=== PATIENT | female | born 1935 | race Caucasian/White ===

== ENCOUNTER 2019-03-17 09:28 | Observation (INO) ==
[2019-03-17] MEDS ORDERED: ONDANSETRON 4 MG/2 ML VIAL ONE (09:59)
[2019-03-17] MEDS ORDERED: ONDANSETRON 4 MG/2 ML VIAL IV STA ×2 (10:03→10:10)
[2019-03-17] MEDS ORDERED: SODIUM CHLORIDE 0.9% 500 ML IV STA (10:09)
[2019-03-17] MEDS ORDERED: METOPROLOL TARTRATE 5 MG/5 ML VIAL IV STA (10:09)
[2019-03-17 10:18] LABS: Basophils # 0.1 10*3/uL (0.0-0.2); Basophils % 0.9 % (0.0-0.8); Eosinophils # 0.3 10*3/uL (0.0-0.87); Eosinophils % 4.2 % (0.00-10.9); Hematocrit 33.1 VOL% (35.7-47.0); Hemoglobin 11.5 GM/DL (12.0-16.0); Immature Granulocytes % 0.3 %; Immature Granulocytes Absolute 0.02 #; Lymphocytes # 2.2 10*3/uL (1.4-4.0); Lymphocytes % 31.5 % (21.3-54.2); Mean Corpuscular HGB Conc 34.7 GM/DL (32-36); Mean Corpuscular Volume 90.9 FL (87-102); Mean Platelet Volume 9.8 FL (9.6-12.0); Monocytes % 13.2 % (1.7-12.7); Neutrophils % 49.9 % (38.7-73.9); Platelet Count 240 T/CUMM (130-400); Red Blood Count 3.64 MC/CUMM (3.8-5.5); Red Cell Distribution Width 13.8 % (9.3-17.3); White Blood Count 6.8 T/CUMM (4-12)
[2019-03-17 10:27] LABS: PT Patient Result 10.7 SECS (9.6-12.2); Partial Thromboplastin Time 26.6 SECS (20.8-36.0)
[2019-03-17 10:40] LABS: Apearance,Urine CLEAR (Clear); Bacteria,Urine Occasional /HPF (Few); Bilirubin,Urine Negative (Negative); Blood, Urine Negative (Negative); Glucose,Urine (UA) Negative (Negative); Ketones,Urine Negative (Negative); Mucus,Urine Occasional /LPF (Occasional); Nitrite,Urine Negative (Negative); Protein,Urine Negative; RBC,Urine 1 /HPF (0-4); Urine Color Straw (Yellow); Urine Specific Gravity 1.006 (1.001-1.035); Urine Urobilinogen < 2.0 EU/DL (0.2-1.0); WBC,Urine 2 /HPF (0-6)
[2019-03-17 10:46] LABS: Albumin 3.8 G/DL (3.4-5.0); Bilirubin,Total 0.7 MG/DL (0.2-1.0); Calcium 9.5 MG/DL (8.5-10.1); Osmolality,Calculated 258.5 MOS/KG (273-304); Total Protein 7.6 G/DL (6.4-8.3)
[2019-03-17] MEDS ORDERED: DOCUSATE SODIUM 100 MG CAPSULE PO PRN (10:59)
[2019-03-17] MEDS ORDERED: ACETAMINOPHEN 325 MG TABLET PO PRN (10:59)
[2019-03-17] MEDS ORDERED: ZALEPLON 5 MG CAPSULE PO PRN (10:59)
[2019-03-17] MEDS ORDERED: ACETAMINOPHEN 500 MG TABLET PO PRN (11:02)
[2019-03-17] MEDS ORDERED: FLUTICASONE 50 MCG NASAL SPRAY 16 GM BOTTLE BOTH NARES PRN (11:02)
[2019-03-17] MEDS ORDERED: MECLIZINE 25 MG TABLET PO PRN (11:13)
[2019-03-17] MEDS ORDERED: hydrALAZINE 20 MG/1 ML VIAL IV PRN (11:13)
[2019-03-17] MEDS ORDERED: METOPROLOL SUCCINATE XL 100 MG TABLET PO SCH (11:30)
[2019-03-17] MEDS ORDERED: LEVOTHYROXINE 25 MCG TABLET PO SCH (11:30)
[2019-03-17] MEDS ORDERED: DILTIAZEM CD 240 MG CAPSULE PO SCH (11:30)
[2019-03-17 11:31] LABS: Calcium 9.4 MG/DL (8.5-10.1); Osmolality,Calculated 258.5 MOS/KG (273-304)
[2019-03-17 11:35] LABS: Albumin 3.8 G/DL (3.4-5.0); Bilirubin,Direct 0.16 MG/DL (0.0-0.20); Bilirubin,Indirect 0.4 MG/DL (0.0-1.0); Bilirubin,Total 0.6 MG/DL (0.2-1.0); Total Protein 7.6 G/DL (6.4-8.3)
[2019-03-17] MEDS: SODIUM CHLORIDE 0.9% 1,000 ML IV SCH (11:53)
[2019-03-17 19:16] LABS: Calcium 8.8 MG/DL (8.5-10.1); Osmolality,Calculated 262.9 MOS/KG (273-304)
[2019-03-17] MEDS ORDERED: POTASSIUM CHLORIDE 20 MEQ TABLET PO ONE (20:59)
[2019-03-17] MEDS ORDERED: ASCORBIC ACID 500 MG TABLET PO SCH (21:00)
[2019-03-17] MEDS ORDERED: VITAMIN E 400 UNIT CAPSULE PO SCH (21:00)
[2019-03-17] MEDS ORDERED: APIXABAN 2.5 MG TABLET PO SCH (21:00)
[2019-03-17] MEDS ORDERED: MAGNESIUM OXIDE 400 MG TABLET PO SCH (21:00)
[2019-03-18] MEDS: SODIUM CHLORIDE 0.9% 1,000 ML IV SCH (02:23)
[2019-03-18 03:52] LABS: Basophils % 0.5 % (0.0-0.8); Eosinophils # 0.2 10*3/uL (0.0-0.87); Eosinophils % 3.7 % (0.00-10.9); Hematocrit 30.8 VOL% (35.7-47.0); Hemoglobin 10.4 GM/DL (12.0-16.0); Immature Granulocytes % 0.4 %; Immature Granulocytes Absolute 0.02 #; Lymphocytes # 1.8 10*3/uL (1.4-4.0); Lymphocytes % 32.1 % (21.3-54.2); Mean Corpuscular HGB Conc 33.8 GM/DL (32-36); Mean Corpuscular Volume 92.2 FL (87-102); Monocytes % 12.5 % (1.7-12.7); Neutrophils % 50.8 % (38.7-73.9); Platelet Count 221 T/CUMM (130-400); Red Blood Count 3.34 MC/CUMM (3.8-5.5); White Blood Count 5.5 T/CUMM (4-12)
[2019-03-18 04:39] LABS: Calcium 8.5 MG/DL (8.5-10.1); Osmolality,Calculated 263.8 MOS/KG (273-304)
[2019-03-18] MEDS ORDERED: POTASSIUM CHLORIDE 20 MEQ TABLET PO ONE (06:26)
[2019-03-18 08:27] VITALS: BP 128/61
[2019-03-18] MEDS ORDERED: POTASSIUM CHLORIDE 20 MEQ TABLET PO SCH (09:00)
[2019-03-18] MEDS ORDERED: POLYETHYLENE GLYCOL POWDER 17 GM PACK PO SCH (09:00)
[2019-03-18] MEDS ORDERED: CHOLECALCIFEROL 1,000 UNIT TABLET PO SCH (09:00)
[2019-03-18] MEDS ORDERED: FOLIC ACID 1 MG TABLET PO SCH (09:00)
== END 2019-03-18 09:58 | disposition home or self-care (01) ==
LOC: N.ED 09:28 → N.EDINP 09:28 → N.2W 12:21
PROVIDERS: ADMIT Internal Medicine Cardiovascular Disease; ATTEND Internal Medicine Cardiovascular Disease

== ENCOUNTER 2021-10-29 11:29 | Inpatient (IN) ==
[2021-10-29 11:56] LABS: Basophils # 0.1 10*3/uL (0.0-0.2); Eosinophils # 0.2 10*3/uL (0.0-0.87); Eosinophils % 4.7 % (0.00-10.9); Hematocrit 34.1 VOL% (35.7-47.0); Hemoglobin 11.5 GM/DL (12.0-16.0); Immature Granulocytes % 0.2 %; Immature Granulocytes Absolute 0.01 #; Lymphocytes # 1.3 10*3/uL (1.4-4.0); Lymphocytes % 25.5 % (21.3-54.2); Mean Corpuscular HGB Conc 33.7 GM/DL (32-36); Mean Corpuscular Volume 92.9 FL (87-102); Mean Platelet Volume 8.7 FL (9.6-12.0); Monocytes # 0.8 10*3/uL (0.11-0.8); Monocytes % 15.6 % (1.7-12.7); Platelet Count 251 T/CUMM (130-400); Red Blood Count 3.67 MC/CUMM (3.8-5.5); Red Cell Distribution Width 15.3 % (9.3-17.3); White Blood Count 4.9 T/CUMM (4-12)
[2021-10-29 12:07] LABS: PT Patient Result 11.3 SECS (10.1-12.1); Partial Thromboplastin Time 26.8 SECS (23.7-32.9)
[2021-10-29 12:21] LABS: Albumin 3.4 G/DL (3.4-5.0); Bilirubin,Total 0.5 MG/DL (0.20-1.00); Calcium 9.9 MG/DL (8.5-10.1); Osmolality,Calculated 282.3 MOS/KG (273-304); Potassium 3.7 MMOL/L (3.5-5.1); Total Protein 6.7 G/DL (6.4-8.2)
[2021-10-29 12:38] LABS: Eosinophils 7 % (0-10); Lymphocytes 32 % (20-55); Total Cells Counted 100
[2021-10-29 12:39] LABS: Platelet Estimate Adequate; Reactive Lymphocytes Few
[2021-10-29 13:04] LABS: Mucus,Urine Occasional /LPF (Occasional); Protein,Urine Negative (Negative); Squamous Epithelial Cell,Urine Occasional /HPF (0-10); Urine Appearance Slightly Hazy (Clear); Urine Color Yellow (Yellow); Urine Specific Gravity 1.015 (1.001-1.035); Urine pH 6.5 (4.5-8.0)
[2021-10-29 13:05] LABS: Bilirubin,Urine Negative (Negative); Blood, Urine Trace mg/dL (Negative); Glucose,Urine (UA) Negative (Negative); Ketones,Urine Negative (Negative); Nitrite,Urine Positive (Negative); Urine Urobilinogen 0.2 eU/dL (<2.0)
[2021-10-29] MEDS ORDERED: cefTRIAXone 1,000 MG in SODIUM CHLORIDE 0.9% 100 ML IV STA (13:23)
[2021-10-29] MEDS ORDERED: LABETALOL 20 MG/4 ML SYRINGE IV PRN (13:50)
[2021-10-29] MEDS ORDERED: DEXTROSE 10% 250 ML BAG IV PRN (13:50)
[2021-10-29] MEDS ORDERED: GLUCAGON 1 MG VIAL IM PRN (13:50)
[2021-10-29] MEDS ORDERED: ONDANSETRON 4 MG/2 ML VIAL IV PRN (13:51)
[2021-10-29] MEDS ORDERED: ACETAMINOPHEN 325 MG TABLET PO PRN (13:51)
[2021-10-29] MEDS ORDERED: ASPIRIN 300 MG SUPP RECTAL STA (13:54)
[2021-10-29] MEDS ORDERED: FLUTICASONE 50 MCG NASAL SPRAY 16 GM BOTTLE BOTH NARES PRN (13:58)
[2021-10-29] MEDS ORDERED: LORATADINE 10 MG TABLET PO PRN (13:58)
[2021-10-29] MEDS ORDERED: DENOSUMAB 60 MG/ML SYRINGE SUBCUT SCH (14:00)
[2021-10-29] MEDS: LACTATED RINGERS 1,000 ML IV SCH (16:57)
[2021-10-29] MEDS ORDERED: ATORVASTATIN 40 MG TABLET PO SCH (21:00)
[2021-10-29] MEDS: CALCIUM (CARBONATE) 500 MG TABLET PO SCH (21:38)
[2021-10-29] MEDS: METHENAMINE HIPPURATE 1 GM TABLET PO SCH (21:38)
[2021-10-29] MEDS: APIXABAN 5 MG TABLET PO SCH (21:38)
[2021-10-30 04:34] LABS: Basophils # 0.1 10*3/uL (0.0-0.2); Basophils % 0.9 % (0.0-0.8); Eosinophils # 0.3 10*3/uL (0.0-0.87); Eosinophils % 4.4 % (0.00-10.9); Hematocrit 39.2 VOL% (35.7-47.0); Hemoglobin 13.4 GM/DL (12.0-16.0); Immature Granulocytes % 0.1 %; Immature Granulocytes Absolute 0.01 #; Lymphocytes # 1.8 10*3/uL (1.4-4.0); Lymphocytes % 26.8 % (21.3-54.2); Mean Corpuscular HGB Conc 34.2 GM/DL (32-36); Mean Corpuscular Volume 93.8 FL (87-102); Mean Platelet Volume 9.5 FL (9.6-12.0); Monocytes # 1.1 10*3/uL (0.11-0.8); Monocytes % 16.7 % (1.7-12.7); Neutrophils % 51.1 % (38.7-73.9); Platelet Count 271 T/CUMM (130-400); Red Blood Count 4.18 MC/CUMM (3.8-5.5); Red Cell Distribution Width 15.3 % (9.3-17.3); White Blood Count 6.8 T/CUMM (4-12)
[2021-10-30 04:54] LABS: Calcium 10.4 MG/DL (8.5-10.1); Potassium 3.3 MMOL/L (3.5-5.1); Risk Ratio 3.44; VLDL Cholesterol 25.2 MG/DL
[2021-10-30 05:00] LABS: Free T4 (Free Thyroxine) 1.18 NG/DL (0.76-1.46); Thyroid Stimulating Hormone 2.25 uIU/ml (0.358-3.74)
[2021-10-30 05:19] LABS: Band Neutrophils 1 % (0-10); Eosinophils 3 % (0-10); Lymphocytes 36 % (20-55); Myelocytes 1 %; Total Cells Counted 100
[2021-10-30 05:20] LABS: Platelet Estimate Normal
[2021-10-30] MEDS: LACTATED RINGERS 1,000 ML IV SCH ×3 (06:38→23:32)
[2021-10-30] MEDS: LEVOTHYROXINE 25 MCG TABLET PO SCH (06:38)
[2021-10-30] MEDS ORDERED: POTASSIUM CHLORIDE 20 MEQ TABLET PO ONE (07:44)
[2021-10-30] MEDS ORDERED: ASPIRIN 325 MG TABLET PO SCH (09:00)
[2021-10-30] MEDS: VITAMIN E 400 UNIT CAPSULE PO SCH (09:02)
[2021-10-30] MEDS: ASPIRIN EC 81 MG TABLET PO SCH (09:03)
[2021-10-30] MEDS: FOLIC ACID 1 MG TABLET PO SCH (09:03)
[2021-10-30] MEDS: ASCORBIC ACID 500 MG TABLET PO SCH (09:03)
[2021-10-30] MEDS: cefTRIAXone 1,000 MG in SODIUM CHLORIDE 0.9% 100 ML IV SCH (09:03)
[2021-10-30] MEDS: APIXABAN 5 MG TABLET PO SCH ×2 (09:03→23:31)
[2021-10-30] MEDS: CHOLECALCIFEROL 1,000 UNIT TABLET PO SCH (09:03)
[2021-10-30] MEDS: METOPROLOL SUCCINATE XL 100 MG TABLET PO SCH (09:03)
[2021-10-30] MEDS: DILTIAZEM CD 240 MG CAPSULE PO SCH (09:23)
[2021-10-30] MEDS: METHENAMINE HIPPURATE 1 GM TABLET PO SCH ×2 (12:16→23:31)
[2021-10-30] MEDS: CALCIUM (CARBONATE) 500 MG TABLET PO SCH (23:31)
[2021-10-30] MEDS: ATORVASTATIN 80 MG TABLET PO SCH (23:31)
[2021-10-31 05:08] LABS: Basophils # 0.1 10*3/uL (0.0-0.2); Basophils % 0.7 % (0.0-0.8); Eosinophils # 0.3 10*3/uL (0.0-0.87); Eosinophils % 3.5 % (0.00-10.9); Hematocrit 38.5 VOL% (35.7-47.0); Hemoglobin 13.1 GM/DL (12.0-16.0); Immature Granulocytes % 0.3 %; Immature Granulocytes Absolute 0.02 #; Lymphocytes # 1.9 10*3/uL (1.4-4.0); Mean Corpuscular Volume 92.5 FL (87-102); Mean Platelet Volume 9.8 FL (9.6-12.0); Monocytes # 1.2 10*3/uL (0.11-0.8); Monocytes % 15.6 % (1.7-12.7); Neutrophils % 53.9 % (38.7-73.9); Platelet Count 239 T/CUMM (130-400); Red Blood Count 4.16 MC/CUMM (3.8-5.5); Red Cell Distribution Width 15.1 % (9.3-17.3); White Blood Count 7.4 T/CUMM (4-12)
[2021-10-31 05:27] LABS: Calcium 9.8 MG/DL (8.5-10.1); Osmolality,Calculated 268.2 MOS/KG (273-304); Potassium 2.9 MMOL/L (3.5-5.1)
[2021-10-31 05:33] LABS: Anisocytosis 1+; Band Neutrophils 1 % (0-10); Eosinophils 3 % (0-10); Lymphocytes 26 % (20-55); Macrocytosis Slight; Ovalocytes Few; Platelet Estimate Normal; Total Cells Counted 100
[2021-10-31] MEDS: LEVOTHYROXINE 25 MCG TABLET PO SCH (06:27)
[2021-10-31] MEDS ORDERED: POTASSIUM CHLORIDE 20 MEQ TABLET PO ONE ×2 (07:33→12:00)
[2021-10-31] MEDS ORDERED: MAGNESIUM SULF RIDER 4 GM/100 ML PREMIX IV ONE (08:21)
[2021-10-31] MEDS: cefTRIAXone 1,000 MG in SODIUM CHLORIDE 0.9% 100 ML IV SCH (08:36)
[2021-10-31] MEDS: FOLIC ACID 1 MG TABLET PO SCH (08:37)
[2021-10-31] MEDS: METOPROLOL SUCCINATE XL 100 MG TABLET PO SCH (08:37)
[2021-10-31] MEDS: VITAMIN E 400 UNIT CAPSULE PO SCH (08:37)
[2021-10-31] MEDS: METHENAMINE HIPPURATE 1 GM TABLET PO SCH ×2 (08:37→22:51)
[2021-10-31] MEDS: ASCORBIC ACID 500 MG TABLET PO SCH (08:37)
[2021-10-31] MEDS: CHOLECALCIFEROL 1,000 UNIT TABLET PO SCH (08:37)
[2021-10-31] MEDS: ASPIRIN EC 81 MG TABLET PO SCH (08:37)
[2021-10-31] MEDS: APIXABAN 5 MG TABLET PO SCH ×2 (08:37→22:50)
[2021-10-31] MEDS: DILTIAZEM CD 240 MG CAPSULE PO SCH (08:37)
[2021-10-31] MEDS: LACTATED RINGERS 1,000 ML IV SCH ×3 (10:27→16:31)
[2021-10-31] MEDS ORDERED: diphenhydrAMINE CAP 50 MG CAPSULE PO PRN (20:13)
[2021-10-31] MEDS: MAGNESIUM OXIDE 400 MG TABLET PO SCH (22:50)
[2021-10-31] MEDS: CALCIUM (CARBONATE) 500 MG TABLET PO SCH (22:50)
[2021-10-31] MEDS: ATORVASTATIN 80 MG TABLET PO SCH (22:51)
[2021-11-01 04:52] LABS: Basophils # 0.1 10*3/uL (0.0-0.2); Basophils % 0.6 % (0.0-0.8); Eosinophils # 0.3 10*3/uL (0.0-0.87); Eosinophils % 2.8 % (0.00-10.9); Hematocrit 39.4 VOL% (35.7-47.0); Hemoglobin 13.5 GM/DL (12.0-16.0); Immature Granulocytes % 0.3 %; Immature Granulocytes Absolute 0.03 #; Lymphocytes # 1.7 10*3/uL (1.4-4.0); Lymphocytes % 16.9 % (21.3-54.2); Mean Corpuscular HGB Conc 34.3 GM/DL (32-36); Mean Corpuscular Volume 91.6 FL (87-102); Mean Platelet Volume 9.9 FL (9.6-12.0); Monocytes # 1.5 10*3/uL (0.11-0.8); Monocytes % 14.3 % (1.7-12.7); Neutrophils % 65.1 % (38.7-73.9); Platelet Count 224 T/CUMM (130-400); Red Cell Distribution Width 14.5 % (9.3-17.3); White Blood Count 10.2 T/CUMM (4-12)
[2021-11-01 05:08] LABS: Calcium 9.4 MG/DL (8.5-10.1); Osmolality,Calculated 256.1 MOS/KG (273-304); Potassium 3.2 MMOL/L (3.5-5.1)
[2021-11-01] MEDS: LEVOTHYROXINE 25 MCG TABLET PO SCH (06:54)
[2021-11-01] MEDS ORDERED: POTASSIUM CHLORIDE 20 MEQ TABLET PO ONE (07:46)
[2021-11-01] MEDS: MAGNESIUM OXIDE 400 MG TABLET PO SCH ×2 (09:25→22:21)
[2021-11-01] MEDS: APIXABAN 5 MG TABLET PO SCH ×2 (09:25→22:21)
[2021-11-01] MEDS: VITAMIN E 400 UNIT CAPSULE PO SCH (09:25)
[2021-11-01] MEDS: VALSARTAN 80 MG TABLET PO SCH (09:25)
[2021-11-01] MEDS: FOLIC ACID 1 MG TABLET PO SCH (09:26)
[2021-11-01] MEDS: cefTRIAXone 1,000 MG in SODIUM CHLORIDE 0.9% 100 ML IV SCH (09:26)
[2021-11-01] MEDS: METOPROLOL SUCCINATE XL 100 MG TABLET PO SCH (09:26)
[2021-11-01] MEDS: CHOLECALCIFEROL 1,000 UNIT TABLET PO SCH (09:26)
[2021-11-01] MEDS: ASCORBIC ACID 500 MG TABLET PO SCH (09:26)
[2021-11-01] MEDS: DILTIAZEM CD 240 MG CAPSULE PO SCH (09:26)
[2021-11-01] MEDS: ASPIRIN EC 81 MG TABLET PO SCH (09:26)
[2021-11-01] MEDS: METHENAMINE HIPPURATE 1 GM TABLET PO SCH ×2 (09:26→22:21)
[2021-11-01] MEDS: SODIUM CHLORIDE 0.9% 1,000 ML IV SCH (09:27)
[2021-11-01] MEDS ORDERED: MELATONIN 3 MG TABLET PO PRN (11:21)
[2021-11-01] MEDS ORDERED: ZALEPLON 5 MG CAPSULE PO PRN (12:43)
[2021-11-01] MEDS: CALCIUM (CARBONATE) 500 MG TABLET PO SCH (22:21)
[2021-11-01] MEDS: ATORVASTATIN 80 MG TABLET PO SCH (22:21)
[2021-11-01] MEDS: MELATONIN 3 MG TABLET PO SCH (22:21)
[2021-11-02] MEDS: SODIUM CHLORIDE 0.9% 1,000 ML IV SCH (04:10)
[2021-11-02 04:45] LABS: Basophils # 0.1 10*3/uL (0.0-0.2); Basophils % 0.7 % (0.0-0.8); Eosinophils # 0.3 10*3/uL (0.0-0.87); Eosinophils % 4.4 % (0.00-10.9); Hematocrit 35.8 VOL% (35.7-47.0); Hemoglobin 12.4 GM/DL (12.0-16.0); Immature Granulocytes % 0.3 %; Immature Granulocytes Absolute 0.02 #; Lymphocytes # 1.8 10*3/uL (1.4-4.0); Lymphocytes % 25.1 % (21.3-54.2); Mean Corpuscular HGB Conc 34.6 GM/DL (32-36); Mean Corpuscular Volume 91.6 FL (87-102); Mean Platelet Volume 9.7 FL (9.6-12.0); Monocytes # 1.2 10*3/uL (0.11-0.8); Monocytes % 16.9 % (1.7-12.7); Neutrophils % 52.6 % (38.7-73.9); Platelet Count 218 T/CUMM (130-400); Red Blood Count 3.91 MC/CUMM (3.8-5.5); Red Cell Distribution Width 14.6 % (9.3-17.3); White Blood Count 7.3 T/CUMM (4-12)
[2021-11-02 05:08] LABS: Eosinophils 3 % (0-10); Lymphocytes 23 % (20-55); Microcytosis Slight; Total Cells Counted 100
[2021-11-02 05:09] LABS: Ovalocytes Slight; Platelet Estimate Normal
[2021-11-02 05:20] LABS: Calcium 9.7 MG/DL (8.5-10.1); Osmolality,Calculated 264.7 MOS/KG (273-304); Potassium 3.6 MMOL/L (3.5-5.1)
[2021-11-02] MEDS: LEVOTHYROXINE 25 MCG TABLET PO SCH (06:23)
[2021-11-02] MEDS ORDERED: FUROSEMIDE 20 MG/2 ML VIAL IV ONE (10:30)
[2021-11-02] MEDS: METHENAMINE HIPPURATE 1 GM TABLET PO SCH ×2 (10:39→20:52)
[2021-11-02] MEDS: DILTIAZEM CD 240 MG CAPSULE PO SCH (10:39)
[2021-11-02] MEDS: APIXABAN 5 MG TABLET PO SCH ×2 (10:40→20:51)
[2021-11-02] MEDS: MAGNESIUM OXIDE 400 MG TABLET PO SCH ×2 (10:40→20:52)
[2021-11-02] MEDS: ASCORBIC ACID 500 MG TABLET PO SCH (10:40)
[2021-11-02] MEDS: CHOLECALCIFEROL 1,000 UNIT TABLET PO SCH (10:40)
[2021-11-02] MEDS: ASPIRIN EC 81 MG TABLET PO SCH (10:41)
[2021-11-02] MEDS: VITAMIN E 400 UNIT CAPSULE PO SCH (10:41)
[2021-11-02] MEDS: FOLIC ACID 1 MG TABLET PO SCH (10:41)
[2021-11-02] MEDS: VALSARTAN 80 MG TABLET PO SCH (10:41)
[2021-11-02] MEDS: METOPROLOL SUCCINATE XL 100 MG TABLET PO SCH (10:41)
[2021-11-02] MEDS: cefTRIAXone 1,000 MG in SODIUM CHLORIDE 0.9% 100 ML IV SCH (10:42)
[2021-11-02] MEDS: ATORVASTATIN 80 MG TABLET PO SCH (20:52)
[2021-11-02] MEDS: MELATONIN 3 MG TABLET PO SCH (20:52)
[2021-11-02] MEDS: CALCIUM (CARBONATE) 500 MG TABLET PO SCH (20:52)
[2021-11-03] MEDS: LEVOTHYROXINE 25 MCG TABLET PO SCH (05:53)
[2021-11-03 06:00] LABS: Basophils # 0.1 10*3/uL (0.0-0.2); Basophils % 0.7 % (0.0-0.8); Eosinophils # 0.4 10*3/uL (0.0-0.87); Eosinophils % 4.8 % (0.00-10.9); Hematocrit 33.5 VOL% (35.7-47.0); Hemoglobin 11.8 GM/DL (12.0-16.0); Immature Granulocytes % 0.4 %; Immature Granulocytes Absolute 0.03 #; Lymphocytes # 1.9 10*3/uL (1.4-4.0); Lymphocytes % 25.3 % (21.3-54.2); Mean Corpuscular HGB Conc 35.2 GM/DL (32-36); Mean Corpuscular Volume 90.3 FL (87-102); Mean Platelet Volume 9.6 FL (9.6-12.0); Monocytes # 1.4 10*3/uL (0.11-0.8); Monocytes % 19.2 % (1.7-12.7); Neutrophils % 49.6 % (38.7-73.9); Platelet Count 209 T/CUMM (130-400); Red Blood Count 3.71 MC/CUMM (3.8-5.5); Red Cell Distribution Width 14.6 % (9.3-17.3); White Blood Count 7.3 T/CUMM (4-12)
[2021-11-03 06:14] LABS: Calcium 8.7 MG/DL (8.5-10.1); Osmolality,Calculated 256.2 MOS/KG (273-304); Potassium 3.3 MMOL/L (3.5-5.1)
[2021-11-03 06:20] LABS: Eosinophils 6 % (0-10); Lymphocytes 21 % (20-55); Platelet Estimate Adequate; Total Cells Counted 100
[2021-11-03] MEDS ORDERED: POLYETHYLENE GLYCOL POWDER 17 GM PACK PO SCH (09:00)
[2021-11-03] MEDS ORDERED: POTASSIUM CHLORIDE 20 MEQ TABLET PO SCH (09:00)
[2021-11-03] MEDS: DILTIAZEM CD 240 MG CAPSULE PO SCH (09:29)
[2021-11-03] MEDS: METHENAMINE HIPPURATE 1 GM TABLET PO SCH (09:29)
[2021-11-03] MEDS: APIXABAN 5 MG TABLET PO SCH (09:30)
[2021-11-03] MEDS: FOLIC ACID 1 MG TABLET PO SCH (09:30)
[2021-11-03] MEDS: METOPROLOL SUCCINATE XL 100 MG TABLET PO SCH (09:30)
[2021-11-03] MEDS: MAGNESIUM OXIDE 400 MG TABLET PO SCH (09:31)
[2021-11-03] MEDS: CHOLECALCIFEROL 1,000 UNIT TABLET PO SCH (09:31)
[2021-11-03] MEDS: ASCORBIC ACID 500 MG TABLET PO SCH (09:31)
[2021-11-03] MEDS: ASPIRIN EC 81 MG TABLET PO SCH (09:31)
[2021-11-03] MEDS: VITAMIN E 400 UNIT CAPSULE PO SCH (09:31)
[2021-11-03] MEDS: cefTRIAXone 1,000 MG in SODIUM CHLORIDE 0.9% 100 ML IV SCH ×2 (09:43→10:29)
[2021-11-03] MEDS: VALSARTAN 80 MG TABLET PO SCH (09:52)
[2021-11-03 12:59] VITALS: BP 129/73
[2021-11-03] MEDS ORDERED: CEFUROXIME 500 MG TABLET PO SCH (21:00)
[2021-11-04] MEDS ORDERED: VALSARTAN 80 MG TABLET PO SCH (09:00)
[2021-11-06] MEDS ORDERED: METHOTREXATE 2.5 MG TABLET PO SCH (09:00)
== END 2021-11-03 13:10 | DRG 65 ==
LOC: N.ED 11:29 → SUATTDRO 13:50 → N.EDINP 13:50 → N.TELES 10-31 00:49
PROVIDERS: ADMIT Internal Medicine; ATTEND Hospitalist